=== PATIENT | male | born 1990 | race Caucasian/White ===

== ENCOUNTER 2018-11-22 06:00 | Emergency (ER) | payer OTHER ==
[2018-11-22] MEDS ORDERED: Ketorolac 60 MG/2 ML SDV IM ONE (06:24)
--- NOTE | 2018-11-22 06:29 | EDM.PDOC ---
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 He says he was using both extremities in a bent over position to do a motion at work involving a screw and bolts and was forcefully pushing with his right upper extremity and pulling with his left upper extremity when the bolts opened up and there was a rapid release and he fell forward. The patient did not his head pass out or blacked out but feels discomfort in his left trapezius left posterior shoulder radiating down his triceps and biceps. He has no bony pain and has no head neck or back pain. He has no neurosensory changes in his left upper extremity and he is right-hand dominant. Is no weakness in his left upper extremity but because this occurred at work he was encouraged come here for evaluation. He does not complain of any bony pain in his chest wall and has no left chest pain. There is no shortness of breath and prior to this event he was in his usual state of good health with no systemic complaints. Review of systems: As per history of present illness and below otherwise all systems reviewed and negative. Past medical history: As per history of present illness and as reviewed below otherwise noncontributory. Surgical history: As per history of present illness and as reviewed below otherwise noncontributory. Social history: No reported history of drug or alcohol abuse. Family history: As per history of present illness and as reviewed below otherwise noncontributory. Physical exam: General: Well-developed well-nourished man who is nontoxic and vital signs are reviewed by me HEENT: Atraumatic, normocephalic, negative for conjunctival pallor or scleral icterus, mucous membranes moist, throat clear, neck supple, nontender, trachea midline. There are no midline step-offs tenderness defects of the cervical spine but there is spasm and tenderness with palpation of the left trapezius. Lungs: Clear to auscultation, breath sounds equal bilaterally, chest nontender. Heart: S1S2, regular rate and rhythm no overt murmurs Abdomen: Deferred Pelvis: Deferred Genitourinary: Deferred. Rectal: Deferred. Extremities: Atraumatic with full range of motion of all extremities without defects or deficits. At the left upper extremity specifically there is no bony tenderness at the clavicle humerus elbow radius ulnar wrist or hand. There is some muscular tenderness with palpation of the insertion of the biceps and triceps but the tendons and muscles are intact. There is no compartment swelling ecchymosis or edema. There is also tenderness with palpation of the bursa of the left shoulder without fullness or fluid and there is some discomfort with tenderness of the posterior shoulder girdle. Patient can range of motion without clinical evidence of dislocation or abnormality.. Neurovascular unremarkable. Neuro: Awake, alert, oriented. Cranial nerves II through XII unremarkable. Cerebellum unremarkable. Motor and sensory unremarkable throughout. Exam nonfocal. Diagnostics: X-ray left shoulder Therapeutics: Toradol Impression: Left shoulder/upper extremity musculoskeletal injury Definitive disposition and diagnosis as appropriate pending reevaluation and review of above. left shoulder Pain Score (Numeric/FACES): 2 - Related Data Allergies Allergy/AdvReac Type Severity Reaction Status Date / Time No Known Allergies Allergy Verified 11/22/18 06:03 Home Meds: Home Meds . [No Known Home Meds] 11/22/18 [History] Review of Systems - Review of Systems Review Of Systems: ROS reveals no pertinent complaints other than HPI. ED EXAM, GENERAL - Physical Exam Exam: See Below (See dictation) Course - Vital Signs Last Recorded V/S: Last Vital Signs Temp 36.6 C 11/22/18 06:03 Pulse 97 11/22/18 06:03 Resp 18 11/22/18 06:03 BP 154/85 H 11/22/18 06:03 Pulse Ox 98 11/22/18 06:03 - Orders/Labs/Meds Orders: Active Orders 24 hr Category Date Time Status Shoulder Comp Lt [CR] Stat Exams 11/22/18 06:24 Taken Meds: Medications Discontinued Medications Generic Name Dose Route Start Last Admin Trade Name Freq PRN Reason Stop Dose Admin Ketorolac Tromethamine 60 mg 11/22/18 06:24 11/22/18 06:40 Toradol IM 11/22/18 06:25 60 mg ONETIME ONE Administration Departure - Departure Time of Disposition: 07:32 Disposition: Home, Self-Care 01 Condition: Good Clinical Impression: Injury of left upper extremity Qualifiers: Encounter type: initial encounter Qualified Code(s): S49.92XA - Unspecified injury of left shoulder and upper arm, initial encounter - Discharge Information Referrals: PCP,None [Primary Care Provider] - Forms: ED Department Discharge Additional Instructions: The following information is given to patients seen in the emergency department who are being discharged to home. This information is to outline your options for follow-up care. We provide all patients seen in our emergency department with a follow-up referral. The need for follow-up, as well as the timing and circumstances, are variable depending upon the specifics of your emergency department visit. If you don't have a primary care physician on staff, we will provide you with a referral. We always advise you to contact your personal physician following an emergency department visit to inform them of the circumstance of the visit and for follow-up with them and/or the need for any referrals to a consulting specialist. The emergency department will also refer you to a specialist when appropriate. This referral assures that you have the opportunity for followup care with a specialist. All of these measure are taken in an effort to provide you with optimal care, which includes your followup. Under all circumstances we always encourage you to contact your private physician who remains a resource for coordinating your care. When calling for followup care, please make the office aware that this follow-up is from your recent emergency room visit. If for any reason you are refused follow-up, please contact the [facility] emergency department at and ask to speak to the emergency department charge nurse. [facility]--Orthopedic clinic Professional Building [address] [place] [phone] Ice to all areas of discomfort for the next 24 hours and then switch to ice alternating with heat. Please use [id number] anti-inflammatory such as ibuprofen/Motrin or Aleve and use the muscle relaxer only as needed when you are home as it may cause some drowsiness. Please do all movements with the left upper extremity slowly as there is muscle spasm and he wanted to avoid further injury. Please call and follow-up with orthopedics clinic in the next few days for follow-up care and management as well as contact your occupational health specialist per your employer's instructions for follow-up as you need. Return to ER as needed and as discussed - My Orders Last 24 Hours: My Active Orders 11/22/18 06:24 Shoulder Comp Lt [CR] Stat - Assessment/Plan Last 24 Hours: My Active Orders 11/22/18 06:24 Shoulder Comp Lt [CR] Stat
--- NOTE | 2018-11-22 11:23 | CR ---
EXAM DATE: 11/22/18 PATIENT'S AGE: 28 Patient: LAURENCE ANTONY Facility: [facility] Site Site : 1990 Study: XRay-Shoulder Left [id number]/[id number] 7:19:58 AM Ordering Physician: REA HUA MD Final Report: INDICATION: Pain. Work injury to left shoulder. TECHNIQUE: Three views left shoulder. FINDINGS: Focal notch like age-indeterminate deformity involving the left humeral head anteriorly on lateral view is nonspecific. No dislocation of left shoulder. Left shoulder otherwise unremarkable. Dictated by Galo Amezcua MD @ Nov 22 2018 7:43AM Signed by: Galo Amezcua MD @11/22/2018 7:45:45 AM (Electronic Signature) Report Signed by Proxy. [facility]
== END 2018-11-22 07:43 | disposition home or self-care (01) ==
LOC: MW.ED 06:00 → EDBD 06:00 → MW.ED 07:43
DX: S49.92XA Unspecified injury of left shoulder and upper arm, initial encounter (principal); X50.9XXA Other and unspecified overexertion or strenuous movements or postures, initial encounter
CPT/HCPCS: 73030; 96372; 99283; J1885